=== PATIENT | male | born 2000 | race Caucasian/White ===

== ENCOUNTER 2023-05-19 13:04 | Emergency (ER) | payer OTHER ==
[~2023-05-19] VITALS: Ht 165.1 cm; Wt 83.4 kg
[2023-05-19] MEDS ORDERED: LEXA1TAB PO (13:14)
[2023-05-19 14:59] LABS: BASO % 0.5 % (0.0-1.0); EOS # 0.1 10^3/uL (0.0-0.5); EOS % 1.3 % (0.0-3.0); HEMATOCRIT 43.9 % (42.0-52.0); HEMOGLOBIN 14.9 g/dl (13.5-17.5); LYMPH # 1.6 10^3/uL (1.5-5.0); MEAN CORPUSCULAR HEMOGLOBIN 28.6 pg (27.0-33.0); MEAN CORPUSCULAR HGB CONC 33.9 g/dl (32.0-36.5); MEAN CORPUSCULAR VOLUME 84.3 fl (80.0-96.0); MONO # 0.5 10^3/uL (0.0-0.8); MONO % 8.2 % (2.0-8.0); NEUTROPHILS # 3.4 10^3/uL (1.5-8.5); NEUTROPHILS % 60.8 % (36.0-66.0); PLATELET COUNT, AUTOMATED 231 10^3/uL (150-450); RED BLOOD COUNT 5.21 10^6/uL (4.30-6.10); WHITE BLOOD COUNT 5.6 10^3/uL (4.0-10.0)
[2023-05-19 15:31] LABS: LIPASE 30 U/L (12-53)
[2023-05-19 15:33] LABS: ALBUMIN 4.4 G/DL (3.2-5.2); ALKALINE PHOSPHATASE 73 U/L (46-116); ALT/SGPT 29 U/L (7.0-40); AST/SGOT 17 U/L (<34); BILIRUBIN,DIRECT 0.2 MG/DL (<0.4); BILIRUBIN,TOTAL 0.6 MG/DL (0.3-1.2); BLOOD UREA NITROGEN 6 MG/DL (9-23); CALCIUM LEVEL 9.2 MG/DL (8.5-10.1); CARBON DIOXIDE LEVEL 28 MMOL/L (20-31); CHLORIDE LEVEL 104 MMOL/L (98-107); CK-MB VALUE MASS < 1.0 NG/ML (<3.6); CREATININE FOR GFR 0.79 MG/DL (0.70-1.30); GLOMERULAR FILTRATION RATE > 60.0 (>60); GLUCOSE, FASTING 87 MG/DL (60-100); POTASSIUM SERUM 4.4 MMOL/L (3.5-5.1); SODIUM LEVEL 139 MMOL/L (136-145); TOTAL PROTEIN 7.1 G/DL (5.7-8.2)
[2023-05-19 15:34] LABS: CPK CREATINE PHOSPHOKINASE 110 U/L (46-171)
[2023-05-19 15:35] LABS: THYROID STIMULATING HORMONE 1.321 uIU/ML (0.55-4.78)
[2023-05-19] MEDS ORDERED: KETOROLAC 30 MG/ML 1ML VIAL IV ONE (15:45)
[2023-05-19 16:00] VITALS: BP 134/59
[2023-05-19 16:04] VITALS: TEMP 97.6; O2SAT 100
== END 2023-05-19 16:12 | disposition home or self-care (01) ==
LOC: M ED 13:04
DX: R07.89 Other chest pain (principal); R42 Dizziness and giddiness; M54.6 Pain in thoracic spine; F41.9 Anxiety disorder, unspecified; F32.A Depression, unspecified
CPT/HCPCS: 71046; 80048; 80076; 82550; 82553; 83690; 84443; 84484; 85025; 93005; 93041; 94760; 96374; 99285; J1885

== ENCOUNTER 2023-09-15 17:55 | Emergency (ER) | payer OTHER ==
[~2023-09-15] VITALS: Ht 165.1 cm; Wt 80.0 kg
[~2023-09-15 17:55] MED LIST: LEXA1TAB PO
[2023-09-15] MEDS ORDERED: IBUP200C25 PO (18:28)
[2023-09-15] MEDS ORDERED: MUCI1TAB16 PO (18:28)
[2023-09-15 20:53] LABS: RSV AMPLIFICATION POSITIVE (NEGATIVE)
[2023-09-15] MEDS ORDERED: BENZ200C70 PO (22:34)
[2023-09-15 22:39] VITALS: BP 134/93; TEMP 97.4; O2SAT 96
== END 2023-09-15 22:44 | disposition home or self-care (01) ==
LOC: M ED 17:55
DX: J06.9 Acute upper respiratory infection, unspecified (principal); B97.4 Respiratory syncytial virus as the cause of diseases classified elsewhere; Z79.899 Other long term (current) drug therapy

== ENCOUNTER → 2025-07-21 | Outpatient (CLI) | payer OTHER ==
[~2025-07-21] MED LIST changes: +BENZ200C70 PO; +IBUP200C25 PO; +MUCI1TAB16 PO
== END ==
LOC: M SLEEP 20:00
PROVIDERS: ATTEND Registered Nurse
DX: G47.30 Sleep apnea, unspecified (principal)